=== PATIENT | female | born 1960 | race Caucasian/White ===

== ENCOUNTER 2020-10-10 16:50 | Emergency (ER) | payer OTHER ==
[~2020-10-10 16:50] MED LIST: AMOXICILLIN500 MG PO; ASPIRIN CHEWABL81 MG PO; CLARITIN10 MG PO; CYANOCOBALAMIN IM; DILT-XR180 MG PO; DITROPAN 5 MG TA5 MG PO; FEOSOL325 MG PO; FLEXERIL 10 MG10 MG PO; HYDROCHLOROTHIA25 MG PO; IBUPROFEN600 MG PO; MOBIC15 MG PO; PRINIVIL10 MG PO; PROZAC20 MG PO; ZANTAC150 MG PO
[2020-10-10 17:58] LABS: HEMOGLOBIN 15.7 gm/dl (12.3-15.3); RED BLOOD COUNT 4.58 M/UL (4.00-5.10); WHITE BLOOD COUNT 7.1 K/UL (4.5-11.0)
[2020-10-10 18:20] LABS: BUN/CREATININE RATIO 25 (0-10)
== END 2020-10-10 21:00 | disposition home or self-care (01) ==
LOC: ER1 16:50
PROVIDERS: Physician Assistant
DX: R10.9 Unspecified abdominal pain (principal); I10 Essential (primary) hypertension
CPT/HCPCS: 80053; 81001; 85025; 99284